=== PATIENT | female | born 1935 | race Caucasian/White ===

== ENCOUNTER 2017-05-27 08:23 | Day surgery (SDC) | payer MEDICARE, OTHER ==
[~2017-05-27] VITALS: Ht 157.5 cm; Wt 61.4 kg
[~2017-05-27 08:23] MED LIST: DIPASPER; RAMI2.5; RAMI5 PO
== END 2017-05-27 10:02 | disposition home or self-care (01) ==
LOC: ORSCSDS 08:23
PROVIDERS: Internal Medicine Gastroenterology
PROC: 0DBN8ZX Excision of Sigmoid Colon, Via Natural or Artificial Opening Endoscopic, Diagnostic (ICD-10-PCS; principal; 2017-05-27 09:30)
PROC: 0DBK8ZX Excision of Ascending Colon, Via Natural or Artificial Opening Endoscopic, Diagnostic (ICD-10-PCS; principal; 2017-05-27 09:30)
DX: R10.31 Right lower quadrant pain (principal); D12.2 Benign neoplasm of ascending colon; D12.5 Benign neoplasm of sigmoid colon; K64.8 Other hemorrhoids; K57.30 Diverticulosis of large intestine without perforation or abscess without bleeding; I10 Essential (primary) hypertension; E78.5 Hyperlipidemia, unspecified; Z87.891 Personal history of nicotine dependence; Z86.73 Personal history of transient ischemic attack (TIA), and cerebral infarction without residual deficits; Z79.899 Other long term (current) drug therapy
CPT/HCPCS: 88305; J7120

== ENCOUNTER 2018-07-22 08:41 | Day surgery (SDC) | payer MEDICARE, OTHER ==
[~2018-07-22] VITALS: Ht 157.5 cm; Wt 58.9 kg
[~2018-07-22 08:41] MED LIST changes: +Aggrenox Capsu1 EACH PO; +Calcium With V1 EAC2 PO; -DIPASPER; +MIRALAX17 GM PO
--- NOTE | 2018-07-22 09:18 | NUR ---
History, Chart, Medications and Allergies reviewed before start of procedure. Patient confirms NPO status and agrees with scheduled surgery. Lungs clear T/O to Auscultation. Pre-Op teaching done. Pt verbalizes understanding. Patient reports completing Chlorhexadine shower X2 prior to admission to hospital. Patient States Post-Procedure ride home has been arranged. Ambulatory in Day Surgery.
--- NOTE | 2018-07-22 09:40 | NUR ---
OR TRACKER CARD EXPLAINED TO JACINTO, OPPORTUNITY FOR QUESTIONS PROVIDED.
== END 2018-07-22 15:45 | disposition home or self-care (01) ==
LOC: ORSCMMR 08:41 → ORD 10:00 → ORSCMMR 15:45
PROVIDERS: Surgery
PROC: 0FT44ZZ Resection of Gallbladder, Percutaneous Endoscopic Approach (ICD-10-PCS; principal; 2018-07-22 10:00)
PROC: 0FD04ZX Extraction of Liver, Percutaneous Endoscopic Approach, Diagnostic (ICD-10-PCS; principal; 2018-07-22 10:00)
DX: K80.18 Calculus of gallbladder with other cholecystitis without obstruction (principal); C22.7 Other specified carcinomas of liver; I10 Essential (primary) hypertension; E78.5 Hyperlipidemia, unspecified; Z86.73 Personal history of transient ischemic attack (TIA), and cerebral infarction without residual deficits; Z87.891 Personal history of nicotine dependence; Z79.82 Long term (current) use of aspirin; Z79.899 Other long term (current) drug therapy
CPT/HCPCS: 88307; 88331; 88341; 88342; 94660; J0690; J1100; J2250; J2405; J2704; J2710; J3010; J7030; J7120

== ENCOUNTER 2018-07-29 09:42 | Emergency (ER) | payer MEDICARE, OTHER ==
[~2018-07-29] VITALS: Ht 157.5 cm; Wt 55.8 kg
[2018-07-29 11:05] LABS: BASOPHILS ABSOLUTE AUTO 0.06 K/mm3 (0.00-0.23); BASOPHILS PERCENT AUTO 0 % (0-2); EOSINOPHILS ABSOLUTE AUTO 0.13 K/mm3 (0.00-0.68); EOSINOPHILS PERCENT AUTO 1 % (0-6); Hematocrit 33.3 % (33.0-51.0); Hemoglobin 10.7 g/dL (11.5-16.0); IMMATURE GRAN ABSOLUTE AUTO 0.05 K/mm3 (0.00-0.10); IMMATURE GRAN PERCENT AUTO 0 % (0-1); LYMPHOCYTES ABSOLUTE AUTO 0.53 K/mm3 (0.84-5.20); LYMPHOCYTES PERCENT AUTO 4 % (21-46); MONOCYTES ABSOLUTE AUTO 1.18 K/mm3 (0.16-1.47); MONOCYTES PERCENT AUTO 8 % (4-13); Mean Corpuscular HGB 30.1 pg (26.0-34.0); Mean Corpuscular HGB Conc 32.1 g/dL (31.5-36.5); Mean Corpuscular Volume 94 fL (80-100); Mean Platelet Volume 10.8 fL (9.1-12.4); NEUTROPHILS ABSOLUTE AUTO 12.07 K/mm3 (1.96-9.15); NEUTROPHILS PERCENT AUTO 86 % (41-73); Platelet Count 206 K/mm3 (150-400); RDW Coefficient Variation 12.6 % (11.7-14.2); RDW Standard Deviation 43.3 fL (35.1-46.3); Red Blood Cell Count 3.56 M/mm3 (3.80-5.20); White Blood Cell Count 14.02 K/mm3 (4.00-11.30)
[2018-07-29 11:23] LABS: Alanine Aminotransfer (ALT/SGP 41 U/L (12-78); Albumin, Blood 3.3 g/dL (3.4-5.0); Albumin/Globulin Ratio 0.8 (0.8-1.8); Alk Phos 284 U/L (50-136); Anion Gap 7 mmol/L (6-16); Aspartate Aminotrans (AST/SGOT 79 U/L (12-37); Bilirubin, Total 0.7 mg/dL (0.1-1.0); Blood Urea Nitrogen 14 mg/dL (8-24); Bun/Creatinine Ratio 20.4 (12.0-20.0); CO2, Blood 26 mmol/L (21-32); Chloride, Blood 103 mmol/L (98-108); Creatinine, Blood 0.69 mg/dL (0.40-1.00); Globulin, Blood 3.9 g/dL (2.2-4.0); Glomerular Filtration Rate >60 (60-); Glucose, Blood 102 mg/dL (70-99); Potassium, Blood 4.2 mmol/L (3.5-5.5); Sodium, Blood 136 mmol/L (136-145); Total Protein, Blood 7.2 g/dL (6.4-8.2)
[2018-07-29 11:33] LABS: Source, Urine Clean Catch
[2018-07-29 11:36] LABS: Bilirubin, Urine Neg (Neg); Blood, Urine 4+ (Neg); Glucose Qualitative, Urine Neg (Neg); Ketones, Urine 4+ (Neg); Leukocyte Esterase, Urine 2+ (Neg); Nitrite, Urine Neg (Neg); Protein, Urine 2+ (Neg); Urobilinogen, Urine 1+ (Normal)
[2018-07-29 11:56] LABS: Appearance, Urine Hazy (Clear); Color, Urine Yellow (P-Yellow)
[2018-07-29 11:59] LABS: Bacteria Few /hpf; Red Blood Cells, Urine 0-2 /hpf (0-2); Squamous Epithelial Cells Few /hpf (Few); Transitional Epithelial Cells Rare /hpf (0-Rare)
[2018-07-29 12:00] LABS: Mucus Light (0-Heavy)
[2018-07-29] MEDS ORDERED: MIRALAX17 GM PO (14:41)
[2018-07-29] MEDS ORDERED: Percocet 5-3251 EACH PO (14:41)
[2018-07-29] MEDS ORDERED: SIME40L PO (14:41)
[2018-07-29] MEDS ORDERED: Zofran8 MG PO (14:41)
== END 2018-07-29 15:58 | disposition home or self-care (01) ==
LOC: ER 09:42
PROVIDERS: Physician Assistant
DX: G89.3 Neoplasm related pain (acute) (chronic) (principal); C16.9 Malignant neoplasm of stomach, unspecified; C22.7 Other specified carcinomas of liver; C96.9 Malignant neoplasm of lymphoid, hematopoietic and related tissue, unspecified; R10.9 Unspecified abdominal pain; Z88.0 Allergy status to penicillin; Z79.82 Long term (current) use of aspirin; Z79.899 Other long term (current) drug therapy; I10 Essential (primary) hypertension; Z86.73 Personal history of transient ischemic attack (TIA), and cerebral infarction without residual deficits; Z87.891 Personal history of nicotine dependence
CPT/HCPCS: 36415; 74177; 80053; 81001; 83690; 85025; 87077; 87086; 87186; 96361; 96374-59; 96375; 99284-25; J1170; J2405; J7120; Q9967

== ENCOUNTER 2018-08-01 12:10 | Inpatient (IN) | payer MEDICARE, OTHER ==
[~2018-08-01] VITALS: Ht 162.6 cm; Wt 56.8 kg
[~2018-08-01 12:10] MED LIST changes: +Percocet 5-3251 EACH PO; +SIME40L PO; +Zofran8 MG PO
[2018-08-01 12:33] LABS: BASOPHILS ABSOLUTE AUTO 0.05 K/mm3 (0.00-0.23); BASOPHILS PERCENT AUTO 0 % (0-2); EOSINOPHILS PERCENT AUTO 0 % (0-6); Hematocrit 32.8 % (33.0-51.0); Hemoglobin 10.5 g/dL (11.5-16.0); IMMATURE GRAN PERCENT AUTO 1 % (0-1); LYMPHOCYTES ABSOLUTE AUTO 0.74 K/mm3 (0.84-5.20); LYMPHOCYTES PERCENT AUTO 3 % (21-46); MONOCYTES ABSOLUTE AUTO 1.44 K/mm3 (0.16-1.47); MONOCYTES PERCENT AUTO 5 % (4-13); Mean Corpuscular HGB 29.7 pg (26.0-34.0); Mean Corpuscular Volume 93 fL (80-100); Mean Platelet Volume 11.2 fL (9.1-12.4); NEUTROPHILS ABSOLUTE AUTO 25.13 K/mm3 (1.96-9.15); NEUTROPHILS PERCENT AUTO 91 % (41-73); Platelet Count 126 K/mm3 (150-400); RDW Coefficient Variation 12.9 % (11.7-14.2); RDW Standard Deviation 43.5 fL (35.1-46.3); Red Blood Cell Count 3.53 M/mm3 (3.80-5.20); White Blood Cell Count 27.56 K/mm3 (4.00-11.30)
[2018-08-01 12:57] LABS: Alanine Aminotransfer (ALT/SGP 86 U/L (12-78); Albumin, Blood 2.8 g/dL (3.4-5.0); Albumin/Globulin Ratio 0.8 (0.8-1.8); Alk Phos 417 U/L (50-136); Anion Gap 13 mmol/L (6-16); Aspartate Aminotrans (AST/SGOT 241 U/L (12-37); Bilirubin, Total 1.2 mg/dL (0.1-1.0); Blood Urea Nitrogen 18 mg/dL (8-24); Bun/Creatinine Ratio 26.5 (12.0-20.0); CO2, Blood 21 mmol/L (21-32); Calcium, Blood 8.5 mg/dL (8.5-10.1); Chloride, Blood 102 mmol/L (98-108); Creatinine, Blood 0.68 mg/dL (0.40-1.00); Globulin, Blood 3.7 g/dL (2.2-4.0); Glomerular Filtration Rate >60 (60-); Glucose, Blood 146 mg/dL (70-99); Sodium, Blood 136 mmol/L (136-145); Total Protein, Blood 6.5 g/dL (6.4-8.2)
[2018-08-01] MEDS ORDERED: Pantoprazole So40 MG PO (13:54)
--- NOTE | 2018-08-01 14:59 | NUR ---
Initial Visit: Palliative Care Consult for Goals of Care/End Stage. Spoke with Dr Ang and he reports Pt poor prognosis. Metastatic cancer, HI, Stoke, and PE. Pt currently Intubated. Dr Ang reports educating of prognosis. Spoke with Dr Navarro as she came out of Pt's ED room and she reports same poor prognosis. Pt is currently intubated and non responsive. Pt's Luis is present during visit. Engaged in therapeutic disucssion regarding Pt's prognosis. Asked Luis his understanding of Pt's prognosis. Luis engages in discussion of recent events leading up to Pt's current condition. He discuses how Pt has an appointment for further testing on Thursday. Educated Luis on prognosis and life sustaining measures including risk factors of CPR. Luis appears to be in significant emotional stress at this time and his level of understanding is questionable. Luis reports he would like to call Pt's daughter and discuss CPR with her. Offered to call daughter for him and he denies need. Luis calls daughter and at this time daughters wishes are full treatment until she arrives. She is scheduled to arrive to [facility] by airline jessica. Pt's brother arrives to visit. Offered emotional support to both Luis and Pt's brother. 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 Luis reports only family local is Pt brother. Daughter lives in [facility]. Offered distance education faculty liaison visit and Luis is unsure at this time. Ended visit to allow Luis and Pt's brother to visit with Pt and make phone calls to other family members. Palliative Care will remain available for therapeutic visits.
--- NOTE | 2018-08-01 15:31 | NUR ---
ADMIT TO ICU, ROOM 10, VIA GUERNEY FROM ER. PATIENT WITH RECENT DX OF METS. CA; HAD INITIAL VISIT WITH DR. BUNCH ON July. THIS AM SPOUSE FOUND PATIENT NON-RESPONSIVE AND SOME AGONAL TYPE RESP. EMS WAS CALLED; TRANSPORTED PATIENT AND SHE WAS INTUBATED; SEE R.T. NOTES FOR VENT. SETTINGS. EKG SHOWED STEMI; UNABLE TO TREAT AT PRESENT D/T CT SHOWS CVA WELL CHEST CT SHOWS MULTIPLE PULM EMBOLI IN R LUNG. STERI STRIPS TO UMBILICUS AND OTHER AREA ON ABD; INCISIONS DRY/INTACT AND ALMOST HEALED. (NOTE: PATIENT RECENTLY WENT FOR A [employer] AND SURGEON FOUND GALL BLADDER ATTACHED TO LIVER WITH LOTS OF METS./TUMORS; GB KEPT INTACT). PATIENTS' BROTHER AND SPOUSE WITH PATIENT AND VERY CARING; AWARE PROGNOSIS IS POOR BUT PATIENT TO REMAIN FULL CODE STATUS TIL DAUGHTER ARRIVES, FROM [place], [place],; FL[place], OR AROUND 20:45 AND THEN WILL NEED TO DRIVE TO [place] WHICH WILL TAKE AROUND 4 HOURS, ETC. SPOUSE HOPEFUL PATIENT WILL SURVIVE LONG ENOUGH FOR DAUGHTER TO SEE HER AND SAY HER GOODBYES. VSS BUT FEBRILE; CORE TEMP 99.7, MONITOR NSR WITH RARE ECTOPIC NOTED. LUNGS COARSE T/O BUT NO SECRETIONS. PUPILS PINPOINT AND GAZE TO R; SEE ASSESSMENT CHARTING FOR DETAILS.
[2018-08-01 16:07] LABS: PCO2 Arterial 25.8 mmHg (35-45); PO2 Arterial 140 mmHg (80-100)
--- NOTE | 2018-08-01 18:00 | NUR ---
SUMMARY: NO ACUTE CHANGES IN STATUS BUT TEMP. CONT. TO CLIMB; SKIN COOL/DRY BUT KEITH TEMP ABOUT 100.8. U/O 200ML. REMAINS ON VERSED FOR SEDATION/PAIN MANAGEMENT. DR. WEBSTER CONSULTING; TO COME IN LATER. SCD'S IN PLACE AND FUNCTIONING. GIVEN DOSE OF CEFEPIME EVEN THOUGH HX OF PCN ALLERGY; SPOKE TO PHARMACIST, ODELL, AND TO DR. CORDOVA RE: ALLERGY; MED. TO BE GIVEN; NO NOTED RASH OR VS CHANGES DURING INFUSION. WILL REPORT TO ONCOMING RN.
--- NOTE | 2018-08-01 21:35 | NUR ---
ASSUMED CARE OF PT, REPORT RCV'D FROM ORQUIDEA TRUJILLO. PT UNRESPONSIVE TO VERBAL STIMULI AND ONLY SLIGHTLY WITHDRAWS FROM AGGRESSIVE STERNAL RUB. PT SEDATED ON VERSED 5 MG/HR. INTUBATED WITH VENT SETTINGS AC 400/16/5/40%. PT FEBRILE WITH CORE TEMP OF 100.7. LUNG SOUNDS COARSE THROUGHOUT. PT CONTINUES TO HAVE WORSENING ST ELEVATION, DR WEBSTER AND ORQUIDEA WATER QUALITY TESTER CONSULTED. PT'S AND STEP-SONS AT BEDSIDE. PER FAMILY THEY ARE WAITING FOR PT'S DAUGHTER TO ARRIVE FROM [place] AND THEN THEY WILL DECIDE ON COMFORT CARE STATUS. PLEASE SEE FULL SHIFT ASSESSMENT.
--- NOTE | 2018-08-02 00:03 | NUR ---
MIDSHIFT ASSESSMENT PT GIVEN TYLENOL SUPPOSITORY FOR INCREASING FEVER. PT'S DAUGHTER JUST ARRIVED FROM [place]. PT'S FAMILY REMAINS AT BEDSIDE. NO ADDITIONAL CHANGES AT THIS TIME.
--- NOTE | 2018-08-02 02:28 | NUR ---
PT'S FAMILY WENT HOME TO REST FOR THE NIGHT. EDUCATED FAMILY REGARDING PT'S CONDITION AND COMFORT CARE OPTIONS. FAMILY STATES THEY WOULD LIKE TO GET SOME REST AND THEN MAKE PATIENT COMFORT CARE IN THE MORNING. FAMILY GIVEN CARD WITH DIRECT NUMBER TO ICU AND REMINDED THAT THEY CAN CALL OR STOP IN AT ANY TIME.
[2018-08-02 03:27] LABS: BASOPHILS ABSOLUTE AUTO 0.05 K/mm3 (0.00-0.23); BASOPHILS PERCENT AUTO 0 % (0-2); EOSINOPHILS ABSOLUTE AUTO 0.07 K/mm3 (0.00-0.68); EOSINOPHILS PERCENT AUTO 0 % (0-6); Hematocrit 33.7 % (33.0-51.0); Hemoglobin 10.8 g/dL (11.5-16.0); IMMATURE GRAN ABSOLUTE AUTO 0.34 K/mm3 (0.00-0.10); IMMATURE GRAN PERCENT AUTO 1 % (0-1); LYMPHOCYTES ABSOLUTE AUTO 1.11 K/mm3 (0.84-5.20); LYMPHOCYTES PERCENT AUTO 4 % (21-46); MONOCYTES ABSOLUTE AUTO 2.22 K/mm3 (0.16-1.47); MONOCYTES PERCENT AUTO 9 % (4-13); Mean Corpuscular HGB 28.8 pg (26.0-34.0); Mean Platelet Volume 11.7 fL (9.1-12.4); NEUTROPHILS ABSOLUTE AUTO 21.53 K/mm3 (1.96-9.15); NEUTROPHILS PERCENT AUTO 85 % (41-73); Platelet Count 107 K/mm3 (150-400); RDW Coefficient Variation 13.2 % (11.7-14.2); RDW Standard Deviation 43.2 fL (35.1-46.3); Red Blood Cell Count 3.75 M/mm3 (3.80-5.20); White Blood Cell Count 25.32 K/mm3 (4.00-11.30)
[2018-08-02 03:29] LABS: Mean Corpuscular Volume 90 fL (80-100)
[2018-08-02 03:48] LABS: Alanine Aminotransfer (ALT/SGP 101 U/L (12-78); Albumin, Blood 2.5 g/dL (3.4-5.0); Albumin/Globulin Ratio 0.7 (0.8-1.8); Alk Phos 369 U/L (50-136); Anion Gap 12 mmol/L (6-16); Aspartate Aminotrans (AST/SGOT 297 U/L (12-37); Bilirubin, Total 1.1 mg/dL (0.1-1.0); Blood Urea Nitrogen 20 mg/dL (8-24); Bun/Creatinine Ratio 26.9 (12.0-20.0); CO2, Blood 19 mmol/L (21-32); Calcium, Blood 8.5 mg/dL (8.5-10.1); Chloride, Blood 107 mmol/L (98-108); Creatinine, Blood 0.74 mg/dL (0.40-1.00); Globulin, Blood 3.8 g/dL (2.2-4.0); Glomerular Filtration Rate >60 (60-); Glucose, Blood 123 mg/dL (70-99); Magnesium, Blood 2.1 mg/dL (1.6-2.4); Potassium, Blood 3.8 mmol/L (3.5-5.5); Sodium, Blood 138 mmol/L (136-145); Total Protein, Blood 6.3 g/dL (6.4-8.2)
--- NOTE | 2018-08-02 06:13 | NUR ---
SHIFT SUMMARY NO ACUTE CHANGES OVERNIGHT. PT REMAINS UNRESPONSIVE WITH NO NEUROLOGICAL CHANGE. PUPILS FLUCTUATE BETWEEN PINPOINT AND 5 MM WITH SLUGGISH RESPONSE AND NO MOVEMENT. PT HAS SLIGHT COUGH REFLEX WITH ETT SUCTIONING BUT NO GAG WITH ORAL CARE. TMAX 101.6. PT CONTINUES TO HAVE ST ELEVATION NOTED ON EKG WITH UPWARD TREND IN TROPONIN VENT SETTING AC 14/400/5/25%, VERSED DECREASED TO 2 MG/HR WITH NO NEUROLOGICAL IMPROVEMENTS. PT HAD 200 ML OF VERY CLOUDY, FOUL SMELLING URINE WITH LARGE AMOUNT OF SEDIMENT PRESENT. PER PATIENTS FAMILY THEY WILL ALL RECONVENE THIS MORNING AND MOVE FORWARD WITH COMFORT CARE. SEE PREVIOUS SHIFT NOTES. WILL REPORT TO DAYSHIFT NURSE.
--- NOTE | 2018-08-02 08:33 | NUR ---
0700: CARE ASSUMED, ASSESSMENT COMPLETED. PT RESTING QUIETLY WITH EYES CLOSED, NO AGITIATION NOTED. VSS, ICE PACKS REMOVED FROM UNDER ARMS, BLANKETS REMAIN OFF. HRR WITH ST ELEVATION. LS CLEAR, ET SECRETIONS SMALL AND CLEAR. NS INFUSING WITHOUT DIFFICULTY VIA 20G RAC, L EXT JUG 18G FLUSHES WELL. PT REMAINS RESPONSIVE TO PAIN ONLY WITH A GRIMACE AND ABNORMAL FLEXION OF UE'S. 0830: PT REPOSITIONED, DR. CORDOVA AT BEDSIDE TO ASSESS.
--- NOTE | 2018-08-02 10:05 | NUR ---
1000: DR. WEBSTER HAS BEEN IN TO SEE PT, NO CHANGES MADE TO VENT SETTINGS, VERSED REMAINS OFF PER DOCTOR. VSS, TEMP 99.7, FAN ON. PT REPOSITIONED, ORAL SUCTIONING DONE, EXTREMS ELEVATED ON PILLOWS. NO CHANGES NOTED IN PT STATUS.
--- NOTE | 2018-08-02 12:25 | NUR ---
PT REPOSITIONED, ORAL CARE COMPLETED, NO CHANGES NOTED IN NEURO STATUS, DECERIBATE POSTURING NOTED WITH NOXIOUS STIMULI. VENT SETTINGS UNCHANGED, VERSED GTT REMAINS OFF. FAMILY AT BEDSIDE AT THIS TIME, DR. WEBSTER AWARE.
--- NOTE | 2018-08-02 13:58 | NUR ---
PT'S AND FAMILY MEMBERS AT BEDSIDE, REPORTS HE IS READY TO WITHDRAW CARE. DR. WEBSTER AND DOCTOR ART NOTIFIED, AWAITING ORDERS.
--- NOTE | 2018-08-02 14:33 | NUR ---
PT EXTUBATED AT 1431 PER ORDERS, COMFORT CARE MEASURES INITIATED. LABORED AGONAL BREATHING NOTED, ROXANOL ADMINISTERED AT THIS TIME FOR COMFORT. PT'S FAMILY AT BEDSIDE.
--- NOTE | 2018-08-02 16:26 | NUR ---
PT REPOSITIONED, ORAL CARE AND ORAL SUCTIONING COMPLETED. HR REMAINS 80'S - 90'S, LS COARSE T/O. PT GRUNTING WITH BREATHS, MEDICATED WITH ROXANOL FOR COMFORT. FAMILY REMAINS AT BEDSIDE, DENIES NEEDS.
--- NOTE | 2018-08-02 18:02 | NUR ---
1730: PT'S HR 90'S, RR 22, LS COARSE T/O. REPORT GIVEN TO ORQUIDEA ARREDONDO ON MEDICAL FLOOR. PT TO ROOM 313 AT THIS TIME. NOTIFIED.
--- NOTE | 2018-08-02 18:07 | NUR ---
PT. ARRIVED TO FLOOR VIA BED FROM ICU. PT. COMATOSE AND NON-RESPONSIVE, MOTTLING NOTED ALL THE WAY TO TOES AND COLD TO TOUCH. PT. GURGLING SO ATROPINE DROPS GIVEN. NO NOTEABLE CHANGES THIS SHIFT. SALEEM CATHETER IN PLACE WITH LITTLE OUTPUT
--- NOTE | 2018-08-02 21:10 | NUR ---
PT DOES NOT APPEAR TO BE IN PAIN, RESPIRATIONS EQUAL AND UNLABORED.
--- NOTE | 2018-08-02 21:40 | NUR ---
RESPIRATIONS EQUAL AND UNLABORED
--- NOTE | 2018-08-03 00:20 | NUR ---
SUCTIONED PATIENT AND ADMINISTERED ATROPINE DROPS
--- NOTE | 2018-08-03 01:03 | NUR ---
RESPIRATIONS EQUAL AND UNLABORED.
--- NOTE | 2018-08-03 03:17 | NUR ---
RESPIRATIONS A LITTLE MORE SHALLOW, EQUAL.
--- NOTE | 2018-08-03 06:05 | NUR ---
SHIFT SUMMARY PATIENT IS ON COMFORT CARE. DOES NOT APPEAR TO BE IN ANY DISCOMFORT. DID MEDICATE THROUGHOUT THE NIGHT FOR SECRETIONS. SKIN WARM AND PINK. HEAD ELEVATED 30 DEGREES. SALEEM CATHETER DRAINING, DARK YELLOW/ ORANGISH COLOR.
--- NOTE | 2018-08-03 07:00 | NUR ---
PT. LYING QUIETLY PT. EYES FIXED AND DILATED, FACE WASHED
--- NOTE | 2018-08-03 18:01 | NUR ---
Initial spiritual Care visit: Lengthy visit with Suzi's brother Martin at bedside. Martin is tearful and talkative. He spoke at length about his love and admiration of Suzi. According to Martin, "Suzi ferrer runs things" within the family. It sounds like spouse is having a hard time accepting Suzi's rapid decline. 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 Listening to life stories and provided education and anticipatory bereavement financial services counselor to good effect. We had an easy rapport. Martin tells me that spouse, Luis, "is throwing himself into work to avoid all this." Suzi appears non-responsive to voice and touch. She seems peaceful and shows no signs of distress. Breaths are even but wet. Prayer for a peaceful transition provided at bedside. Dtr arrived and was appreciaitve of support. I will remain available to this family.
--- NOTE | 2018-08-03 19:00 | NUR ---
NO CHANGE IN PT. CONDITION TODAY. FAMILY AT ROOM MOST OF THIS AFTERNOON. NO S/S OF PAIN OR DISTRESS.
--- NOTE | 2018-08-04 04:11 | NUR ---
FAMILY AT BEDSIDE. RESPIRATIONS EQUAL AND UNLABORED. NO SECRETIONS HEARD
--- NOTE | 2018-08-04 04:12 | NUR ---
RESPIRATIONS EQUAL AND UNLABORED HEADER MACHINE OPERATOR REPOSITIONED PATIENT. NO SECRETIONS NOTED
--- NOTE | 2018-08-04 04:17 | NUR ---
NO SECRETIONS NOTED, REPOSITIONED WITH CLOUD INFRASTRUCTURE ARCHITECT. RESPIRATIONS EQUAL AND UNLABORED
--- NOTE | 2018-08-04 04:18 | NUR ---
PATIENT APPEARS COMFORTABLE. RESPIRATIONS EQUAL AND UNLABORED
--- NOTE | 2018-08-04 06:51 | NUR ---
REPOSITIONED PATIENT, MEDICATED FOR SECRETIONS. URINE OUTPUT INCREASED
--- NOTE | 2018-08-04 07:15 | NUR ---
PT. LYING QUIETLY BREATHING EVEN AND DEEP, SOME RHONCI IN THROAT SUCTIONED AND GAVE ORAL CARE.
--- NOTE | 2018-08-04 10:10 | NUR ---
Pt visit this AM. Pt is resting in bed and is nonresponsive. Pt appears comfortable with no signs of disress at this time. FLACC score is 0/10. Offered therapetuic touch and gentle voice. Spoke with Pt's bedside nurse Leeanne and she reports no concerns at this time. Palliative Care will remian available.
--- NOTE | 2018-08-04 16:15 | NUR ---
Suzi is not responsive. Breaths even, skin warm and pink. No signs of mottling. Brother, Martin and dtr at bedside. I provided theraputic listening and gentle career development counselor to good effect. Prayer with family for a peaceful transition. Family tearful with epressions of disbelief. they are wondering "why this is taking so long." I will remain available.
--- NOTE | 2018-08-04 18:15 | NUR ---
PT. WITHOUT NOTEABLE CHANGES THIS SHIFT. FAMILY WAS HERE THIS AFTERNOON BUT THERE WASN'T ANY RESPONSE FROM PT. PT. RR SEEMS TO HAVE INCREASED THIS EVENING.
--- NOTE | 2018-08-04 19:59 | NUR ---
PT'S FACE FLUSHED AND WARM TO TOUCH WHEN ENTERING ROOM. REMOVED SHEET AND BLANKETS. PT APPEARS COMFORTABLE.
--- NOTE | 2018-08-05 05:52 | NUR ---
SHIFT SUMMARY PT REMAINED UNRESPONSIVE THROUGHOUT THE NIGHT. PUPILS DILATED. RESPIRATIONS INCREASING BUT PT APPEARS COMFORTABLE. PT WARM TO TOUCH AT START OF SHIFT. COVERS REMOVED. APPEARED TO IMPROVE THROUGHOUT THE NIGHT. PT REPOSITIONED AND ORAL CARE DONE. NO SECRETIONS NOTED. PT RESTING COMFORTABLY IN BED AT THIS TIME. NO FAMILY IN THROUGHOUT THE NIGHT. WILL CONTINUE TO MONITOR AND REPORT TO DAY RN.
--- NOTE | 2018-08-05 07:56 | NUR ---
AM ASSESSMENT PT RESTING QUIETLY. NO SIGNS OF DISCOMFORT AT THIS TIME. PT UNRESPONSIVE. SALEEM DRAINING DARK ANNAMARIE URINE. WILL CONTINUE TO MONITOR FOR COMFORT.
--- NOTE | 2018-08-05 08:48 | NUR ---
Pt visit this AM. Pt resting in bed with her eyes closed and appears mildy dyspneic as evidenced by increased respiration rate of 28/min. All other symptoms appear managed. Offered therapeutic touch and voice with no response from the Pt. Spoke with Pt's bedside nurse Vivian and discussed offereing Monicainol to help manage dyspnea. Vivian reports no concerns at this time. Palliative Care will remain available for symptom management.
--- NOTE | 2018-08-05 17:00 | NUR ---
No family present at time of visit. Sat beside Suzi providing touch and prayer. She is non-responsive, feels warm to the touch, and breaths are even. She appears well cared-for by nursing. Tube Sorter services will remain available.
--- NOTE | 2018-08-05 18:33 | NUR ---
SHIFT SUMMARY PT HAS BEEN UNRESPONSIVE ALL SHIFT. THIS RN ADMINISTERED ROXANOL X1 FOR BREATHING AND PT WAS BREATHING SLOWER/BETTER AFTER. PT STARTED HAVING MORE SECRETIONS THIS EVENING. ATROPINE GIVEN X2 FOR SECRETIONS. THIS RN TRIED SUCTIONING PT BUT PT CLOSES MOUTH WHEN TRYING TO DO ORAL CARE/SUCTIONING. PT APPEARS COMFORTABLE AT THIS TIME. NO MOANING OR GRIMACING NOTED. WILL CONTINUE TO MONITOR COMFORT AND REPORT TO ONCOMING RN.
--- NOTE | 2018-08-06 05:04 | NUR ---
SHIFT SUMMARY PT REACTS TO CARE OR BEING TOUCHED WITH SMALL FACIAL MOVEMENTS, OTHERWISE PT IS UNRESPONSIVE. ORAL CARE DIFFICULT DUE TO PT BITING DOWN WITH ATTEMPTS. NO SECRETIONS NOTED THIS SHIFT. RESPIRATIONS FROM 18-24. PT DOES NOT APPEAR UNCOMFORTABLE. OFF AND ON FLUSHED AND WARM TO TOUCH THIS SHIFT. SHEETS AND BLANKETS REMOVED INTERMITTENTLY. SALEEM CATHETER IN PLACE. DRAINING CONCENTRATED URINE. LOW OUTPUT. PT ON 4 L O2, UNSURE OF REASON BUT CONTINUED IN CASE FAMILY HAD REQUESTED IT FOR COMFORT. PT RESTING COMFORTABLY AT THIS TIME. WILL CONTINUE TO MONITOR AND REPORT TO DAY RN.
--- NOTE | 2018-08-06 07:15 | NUR ---
ASSUMED CARE OF PT- RECIEVED REPORT FROM NIGHT RN, PER REPORT PT NONRESPONSIVE, WITH THE EXCEPTION SHE CLAMPS HER TEETH WHEN STAFF TRY TO PERFORM ORAL CARE. PT HAS NO S&S OF PAIN AT THIS TIME WILL CTM. PT IS A Q2 TURN.
--- NOTE | 2018-08-06 09:00 | NUR ---
PT REPOSITIONED, SALEEM PATENT AND DRAINING TO GRAVITY, NO S&S OF PAIN, SLIGHT COUGH WHEN LAYING FLAT. PT CLENCHES HER MOUTH WHEN ORAL CARE IF PERFORMED. PT STILL NON-VERBAL. WILL CTM.
--- NOTE | 2018-08-06 10:09 | NUR ---
Pt visit this AM. Pt is resting in bed with her eyes closed and is nonresponsive. Pt appears mildly dyspneic as evidenced by increased respiration rate of 24/min. All other symptoms appear managed. Offered therapeutic voice and touch with no response from Pt. Palliative Care will remain available.
--- NOTE | 2018-08-06 12:00 | NUR ---
PT REPOSITIONED NO S&S OF PAIN OR DISTRESS NOTED. PT IS WARM TO THE TOUCH, REMOVED ALL COVERING EXCEPT THE SHEET.
--- NOTE | 2018-08-06 14:00 | NUR ---
BEDBATH COMPLETED WITH SHOWER CAP TO WASH HAIR. HAIR BRUSHED, ORAL CARE COMPLETE WITH SUCTION TOOTHBRUSH, PT MORE RELAXED AND DID NOT CLENCH HER TEETH.
--- NOTE | 2018-08-06 15:24 | NUR ---
Received call from bedside nurse Mariela for collaboration for symptom management. Arrived to Pt room. Pt resting in bed with her eyes closed and is non responsive. Pt appears dyspneic as evidenced by use of accessory muscles and increased respiration rate of 24/min. Discussed the use of Roxinol with Mariela. Order is for 10mg to 20mg of Roxinol. Mariela and this RN agree to offer 10mg of Roxinol to start for air hunger. No other concerns reported at this time. Palliative Care will remain available for symptom management.
--- NOTE | 2018-08-06 15:40 | NUR ---
PT MEDICATED WITH ROXANOL FOR AIR HUNGER. ACCESSORY MUSCLE USE NOTED RESPIRATION RATE ELEVATED TO 24 BREATHS PER MINUTE.PALLIATAVE CARE UPDATED AND CONCURRED ROXANOL WARANTED. PT WARM TO THE TOUCH, COVERED WITH A SHEET. RAISED THE HOB TO EASE WORK OF BREATHING.
--- NOTE | 2018-08-06 19:17 | NUR ---
pt repositioned to the right side, respiration rate slowed and pt visibly relaxed. will ctm.
--- NOTE | 2018-08-06 19:18 | NUR ---
SHIFT SUMMARY- PT STILL NON-RESPONSIVE ROLLED TO HER LEFT SIDE JUST PRIOR TO SHIFT CHANGE. PT HAS BEEN TURNED Q2 TO PREVENT SKIN BREAKDOWN. PT BROTHER SAT AT THE BEDSIDE FOR A LITTLE WHILE THIS AFTERNOON. PT HAS NO OUTWARD SIGNS OF DISTRESS NOTED AT THIS TIME, RESPERATIONS EVEN AND UNLABORED, PT APPEARS RELAXED PASSED ON IN REPORT TO NIGHT ORQUIDEA LINO.
--- NOTE | 2018-08-07 06:32 | NUR ---
SHIFT SUMMARY PT UNRESPONSIVE ON CC. BREATHING STARTED A GASPING MOTION AT 24 RR A MIN SO MEDICATED PER EMAR X1. Q2HR TURNS. VERY MINIMAL URINE OUTPUT. 4.5L O2 NC. MOUTH BREATHING. NO S/S OF PAIN AFTER MEDICATING, SEEMS PEACEFUL.
--- NOTE | 2018-08-07 07:00 | NUR ---
ASSUMED CARE OF PT WITH STUDENT ORQUIDEA OLIVARES. PT STILL NON-RESPONSIVE NOT S&S OF DISTRESS NOTED AT THE TIME OF SHIFT CHANGE, PER REPORT FROM NIGHT ORQUIDEA LINO PT HAD ONE DOSE OF ROXANOL LAST NIGHT TO EASE RESPIRATORY EFFORT. PT CURRENTLY POSITIONED WITH HIPS AND HEELS FLOATED ON PILLOWS, HOB ELEVATED.
--- NOTE | 2018-08-07 11:12 | NUR ---
PALLIATIVE CARE, COMFORT CARE VISIT. Pt in left sidelying position. With assistance of student nurse, assessed reddness coccyx and repositioned pt a little further onto her left side. All extremeties supported, cushioned with pillows. Approx 2-300 ml dk yellow urine noted in arreola cath drainage bag. She is using shoulders/accessory muscles to breath. Discussed Roxanol use with pt's RN and student nurse. They have been using it for increased respiratory effort prn per eMar. Pt also being turned q2hrs and seems to breathe easiest turned on left or right side. Washed pt's face. No family in at this time. Pt appears fairly comfortable and peaceful with the exception of breathing effort. Will remain available and plan to visit daily for s/s assessment and EOL care.
--- NOTE | 2018-08-07 11:20 | NUR ---
PATIENT SLEEPING ON LEFT SIDE. DOES NOT APPEAR TO BE IN ANY PAIN. MEDICATED FOR MILD AIR HUNGER.
--- NOTE | 2018-08-07 13:35 | NUR ---
REPOSITIONED PT TO RIGHT SIDE AND THIS SEEMED TO INCREASE SECRETIONS AND WORK OF BREATHING. REPOSITIONED BACK TO R SIDE AND MEDICATED PER EMAR. CONTACTED MAN BAL IN PC REGARD CHANGE IN PT CONDITION.
--- NOTE | 2018-08-07 14:30 | NUR ---
SECOND COMFORT CARE VISIT MADE TODAY TO ASSESS AND MANAGE S/S. I WAS CALLED TO ROOM BY RN AND STUDENT RN DUE TO CHANGE IN PT'S BREATHING AND INCREASED SECRETIONS. RECOMMENDED SCOPOLOMINE PATCH AND ATROPINE DROPS. RN ENTERED ORDERS IN COMFORT CARE ORDER SET FOR SCOPOLOMINE PATCH AND APPLIED SOON IT WAS AVAILABLE. PT HAS HAD INCREASED SECRETIONS NOTED, ESPECIALLY WITH A CHANGE OF POSITION FROM LEFT SIDE LYING. DISCUSSED POSITIONING AND TRANSITIONING WITH HER NURSES. MET WITH , WHO IS APPROPRIATELY GRIEVING AND TEARFUL AND THEIR DAUGHTER VISITING/VIGILING WITH HER DAD. DISCUSSED S/S OF ACTIVELY DYING WE ARE SEEING IN PT. TIME SPENT LISTENING AND REMINISCING WITH FAMILY. 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 INFORMED FAMILY AND STUDENT RN THAT I FELT PT IS IMMINENT IN THE NEXT 24 HOURS. HER BREATHING IS VERY SHALLOW CECILY STEINBERG BREATHING THIS AFTERNOON. INST FAMILY I WOULD RETURN THIS SEDRICK AND IN THE AM FOR S/S ASSESSMENT AND EOL CARE.
--- NOTE | 2018-08-07 16:48 | NUR ---
PT HAS HAD A CHANGE IN BREATHING, RESP RATE INCREASED STUDDERING WITH SOME BREATHS. CAN NOT REPOSITION BECAUSE WORK OF BREATHING INCREASES WITH ALL OTHER POSITIONS EXCEPT LEFT SIDE LYING. PALLIATIVE CARE RN AT THE BEDSIDE. PT SPOUSE AND BROTHER PRESENT AT THE BEDSIDE. MEDICATED WITH 10MG ROXINOL FOR AIR HUNGER.
--- NOTE | 2018-08-07 17:25 | NUR ---
PT IS EXPERIENCING INCREASING PAUSES IN RESPIRATIONS. MEDICATED PER EMAR FOR AIR HUNGER. FAMILY IS AT BEDSIDE.
--- NOTE | 2018-08-07 17:42 | NUR ---
THIRD COMFORT CARE VISIT TODAY. ADDITIONAL FAMILY MEMBERS PRESENT AND RN IN ROOM ATTENDING TO PT WHEN I ARRIVED. BOTH PT'S BROTHER AND CONTINUE TO BE TEARFUL BUT ALSO ABLE TO LAUGH AND REMINISCE. SHARED AND GAVE ME SOME FAMILY PHOTOS OF ALL OF THEM FROM AROUND 25 YEARS OR MORE AGO. BROTHER TALKED OF LOSS OF HIS OTHER TWO SISTERS AND PARENTS ALSO. TIME SPENT LISTENING AND SUPPORTING BOTH BROTHER AND . BROTHER, LORY, STATES, NOHEMI IS THE SISTER HE ALWAYS WAS CLOSEST TOO AND ENJOYED BEING WITH THROUGHOUT THEIR LIVES. CASE CONFERENCED WITH PT'S RN AND STUDENT NURSE BEFORE LEAVING THE FLOOR. PT'S BREATHING CONTIUES TO TRANSISITON AND DETERIORATE. FAMILY AWARE THAT SHE IS CLOSE TO .
--- NOTE | 2018-08-07 18:38 | NUR ---
SHIFT SUMMARY PT WAS ADMITTED ON 08/01/18 FROM THE ICU AFTER BEING PLACED ON COMFORT CARE. PATIENT HAS BEEN UNRESPONSIVE T/O THE SHIFT. Q2 TURNS, PT TOLERATED BEING ON L SIDE BETTER AND SHOULD REMAIN TO BE REPOSITIONED ON L SIDE. PT HAS BEEN BEING TREATED WITH ROXANOL FOR AIR HUNGER T/O SHIFT. FAMILY HAS BEEN AT BEDSIDE T/O SHIFT. TALKED WITH MAN FROM PC AND PT IS EXPECTED TO PASS SOON.
--- NOTE | 2018-08-08 05:26 | NUR ---
PT DAUGHTER AT BEDSIDE T/O NIGHT. MEDICATED ONCE C ROXANOL. PT RESTING COMFORTABLY. REPOSITIONED STAYING TO L SIDE PER PT'S COMFORT. PT'S RR INCREASED C SHALLOW BREATHS. AT APPROX 0515 PT PASSED C DAUGHTER AT BEDSIDE.
--- NOTE | 2018-08-08 07:05 | NUR ---
PT PASSED THIS MORNING PRIOR TO SHIFT CHANGE; SPOUSE, DAUGHTER AND BROTHER OF PT PRESENT AT SHIFT CHANGE. SPOUSE GOING THROUGH PICTURES OF "LOOKING FOR THE BEST ONE" DAUGHTER WAS PRESENT AT THE TIME THE PT PASSED, BROTHER CRYING INCONSOLABLY, HUGGING PT. PROVIDED THERAPUDIC TOUCH AND SOFT CALM WORDS. PT BROTHER, LORY, CONVINCED TO SIT IN A CHAIR NEXT TO THE BED PROVIDED A PILLOW & WARM BLANKET FOR HIS BACK, HE HAS BACK PAIN AND HIS LEGS WERE SHAKING, FEARFUL THAT HE MAY FALL. PROVIDED A WARM WASH CLOTH AND TISSUES, AFTER 15 MINUTES HE SEEMED TO CALM SOME AND BECAME MORE CONSOLABLE. CALLED NURSING ACUPRESSURE THERAPIST FOR PASTORAL CARE, BINU CALLED. MÓNICA CHICAS TO COME SEE THE FAMILY AND HELP WITH THEIR GRIEF. AT 0720 PT BROTHER LORY EXITED THE ROOM AND SAID HE JUST NEEDS TO GO HOME AND BE ALONE, HE WOULD GREATLY BENNIFIT FROM A PASTORAL CARE VISIT, BUT WAS UNWILLING TO STAY. MÓNICA CHICAS ARRIVED AT 0725, PROVIDING SUPPORT TO OTHER FAMILY MEMBERS AT THIS TIME.
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
--- NOTE | 2018-08-08 09:10 | NUR ---
PT FAMILY LEFT, CALLED AND VERIFIED THAT THEY WERE NOT PLANNING TO COME BACK TO SEE THE PT. PT WAS CLEANED, DIRTY GOWN CHANGED, LINES REMOVED, HARPER LOCO WATER CHEMIST NOTIFIED THE FAMILY HAD CHOSEN [facility], THEY WERE CALLED, AWAITING PICKUP. PT FAMILY RETURNED FOR BELONGINGS AND ARE WITH THE PT AT THIS TIME, WILL BE LEAVING SOON.
== END 2018-08-08 05:15 | DRG 208 ==
LOC: ER 12:10 → MEDS 14:33 → ICUW 14:33 → MEDS 15:30
PROVIDERS: Emergency Medicine; ADMIT Internal Medicine
PROC: 0BH17EZ Insertion of Endotracheal Airway into Trachea, Via Natural or Artificial Opening (ICD-10-PCS; principal; 2018-08-01)
PROC: 5A1945Z Respiratory Ventilation, 24-96 Consecutive Hours (ICD-10-PCS; 2018-08-01)
DX: J96.00 Acute respiratory failure, unspecified whether with hypoxia or hypercapnia (principal); I26.99 Other pulmonary embolism without acute cor pulmonale; I63.9 Cerebral infarction, unspecified; I21.3 ST elevation (STEMI) myocardial infarction of unspecified site; G93.1 Anoxic brain damage, not elsewhere classified; C78.7 Secondary malignant neoplasm of liver and intrahepatic bile duct; C79.89 Secondary malignant neoplasm of other specified sites; G93.40 Encephalopathy, unspecified; I10 Essential (primary) hypertension; Z86.73 Personal history of transient ischemic attack (TIA), and cerebral infarction without residual deficits; Z51.5 Encounter for palliative care; Z87.891 Personal history of nicotine dependence; R40.2430 Glasgow coma scale score 3-8, unspecified time
CPT/HCPCS: 31500; 31720; 36415; 36600; 51702; 70450; 71045; 71260; 80053; 82803; 83735; 83880; 84484; 85025; 94002; 94003; 94770; 96365-59; 96366-59; 99291-25; 99292; C9113; J0330; J0692; J1650; J2250; J7030; Q9967